=== PATIENT | male | born 1965 | race African-American/Black ===

== ENCOUNTER 2017-11-22 09:09 | Emergency (ER) | payer BC ==
[2017-11-22] MEDS: predniSONE 20 MG TABLET PO (10:03)
[2017-11-22] MEDS: NAPROXEN 500 MG TABLET PO (10:03)
[2017-11-22] MEDS: cloNIDine HCL 0.1 MG TABLET PO (10:13)
== END 2017-11-22 11:40 | disposition home or self-care (01) ==
LOC: ER 09:09
DX: M17.0 Bilateral primary osteoarthritis of knee (principal); M19.071 Primary osteoarthritis, right ankle and foot; I10 Essential (primary) hypertension; F12.10 Cannabis abuse, uncomplicated
CPT/HCPCS: 73564; 73610; 99284; J7512

== ENCOUNTER 2019-06-12 08:44 | Inpatient (IN) | payer BC ==
[~2019-06-12] VITALS: Ht 182.9 cm; Wt 86.4 kg
[~2019-06-12 08:44] MED LIST: AMLO5TAB10 PO; METH4TAB2 PO; TRAM50TA PO
[2019-06-12 09:47] LABS: CREATININE 0.9 mg/dL (0.7-1.3); GFR 107.2; POTASSIUM 4.3 mmol/L (3.5-5.1)
[2019-06-12 09:53] LABS: ALBUMIN 3.9 g/dL (3.4-5.0); ALBUMIN/GLOBULIN RATIO 0.9 (1.0-1.7); TOTAL BILIRUBIN 0.4 mg/dL (0.2-1.0); TOTAL PROTEIN 8.3 g/dL (6.4-8.2)
[2019-06-12] MEDS ORDERED: IV NORMAL SALINE 1000ML BAG 1,000 ML IV SCH (09:58)
--- NOTE | 2019-06-12 10:04 | PHYS DOC ---
Past Medical History Past Medical History: No Pertinent History, Hypertension Past Surgical History: No Surgical History Alcohol Use: Heavy Drug Use: Marijuana Adult General Chief Complaint Chief Complaint: TOE PROBLEM [facility] HPI Patient is a 54 year old male who presents with complaining of injury to left great toe. Patient states he dropped a 50 pound box on his left great toe 5 days ago and for the last 2 days had more pain. Patient states is up-to-date with his tetanus immunization and rated his pain as a moderate pain. He denies any medical problem. Review of Systems Review of Systems Constitutional: Denies fever or chills [] Eyes: Denies change in visual acuity, redness, or eye pain [] HENT: Denies nasal congestion or sore throat [] Respiratory: Denies cough or shortness of breath [] Cardiovascular: No additional information not addressed in HPI [] GI: Denies abdominal pain, nausea, vomiting, bloody stools or diarrhea [] : Denies dysuria or hematuria [] Musculoskeletal: Denies back pain, reports joint pain [] Integument: Denies rash or skin lesions [] Neurologic: Denies headache, focal weakness or sensory changes [] Endocrine: Denies polyuria or polydipsia [] All other systems were reviewed and found to be within normal limits, except as documented in this note. Allergies Allergies Allergies Coded Allergies Type Severity Reaction Last Updated Verified No Known Drug Allergies 11/22/17 No Physical Exam Physical Exam Constitutional: Well developed, well nourished, no distress, non-toxic appearance. [] HENT: Normocephalic, atraumatic. Eyes: PERRLA, EOMI, conjunctiva normal, no discharge. [] Neck: Normal range of motion, no tenderness, supple, no stridor. [] Cardiovascular:Heart rate regular rhythm, no murmur [] Lungs & Thorax: Bilateral breath sounds clear to auscultation [] Back: No tenderness, no CVA tenderness. [] Extremities: Left great toe with edema and erythema and tenderness and few area of open wound and contusion. Neurologic: Alert and oriented X 3, no focal deficits noted. [] Psychologic: Affect normal, judgement normal, mood normal. [] Current Patient Data Vital Signs Vital Signs Date Time Temp Pulse Resp B/P (MAP) Pulse Ox O2 Delivery O2 Flow Rate FiO2 06/12/19 09:40 78 16 216/110 (145) 99 06/12/19 09:22 Room Air 06/12/19 09:00 98.4 98.4 Lab Values Laboratory Tests Test 06/12/19 09:24 White Blood Count 5.5 x10^3/uL (4.0-11.0) Red Blood Count 4.76 x10^6/uL (4.30-5.70) Hemoglobin 14.3 g/dL (13.0-17.5) Hematocrit 41.3 % (39.0-53.0) Mean Corpuscular Volume 87 fL (79-100) Mean Corpuscular Hemoglobin 30 pg (25-35) Mean Corpuscular Hemoglobin Concent 35 g/dL (31-37) Red Cell Distribution Width 13.3 % (11.5-14.5) Platelet Count 262 x10^3/uL (140-400) Neutrophils (%) (Auto) 66 % (31-73) Lymphocytes (%) (Auto) 22 % (24-48) L Monocytes (%) (Auto) 10 % (0-9) H Eosinophils (%) (Auto) 2 % (0-3) Basophils (%) (Auto) 1 % (0-3) Neutrophils # (Auto) 3.7 x10^3/uL (1.8-7.7) Lymphocytes # (Auto) 1.2 x10^3/uL (1.0-4.8) Monocytes # (Auto) 0.5 x10^3/uL (0.0-1.1) Eosinophils # (Auto) 0.1 x10^3/uL (0.0-0.7) Basophils # (Auto) 0.0 x10^3/uL (0.0-0.2) Prothrombin Time 11.8 SEC (11.7-14.0) Prothrombin Time INR 0.9 (0.8-1.1) Sodium Level 137 mmol/L (136-145) Potassium Level 4.3 mmol/L (3.5-5.1) Chloride Level 100 mmol/L (98-107) Carbon Dioxide Level 26 mmol/L (21-32) Anion Gap 11 (6-14) Blood Urea Nitrogen 12 mg/dL (8-26) Creatinine 0.9 mg/dL (0.7-1.3) Estimated GFR (Cockcroft-Gault) 107.2 BUN/Creatinine Ratio 13 (6-20) Glucose Level 124 mg/dL (70-99) H Lactic Acid Level 1.7 mmol/L (0.4-2.0) Calcium Level 9.0 mg/dL (8.5-10.1) Total Bilirubin 0.4 mg/dL (0.2-1.0) Aspartate Amino Transferase (AST) 28 U/L (15-37) Alanine Aminotransferase (ALT) 30 U/L (16-63) Alkaline Phosphatase 62 U/L (46-116) Creatine Kinase 173 U/L (39-308) YB-Hmw-L-Type Natriuretic Peptide 31 pg/mL (0-124) Total Protein 8.3 g/dL (6.4-8.2) H Albumin 3.9 g/dL (3.4-5.0) Albumin/Globulin Ratio 0.9 (1.0-1.7) L Laboratory Tests 06/12/19 09:24 Laboratory Tests 06/12/19 09:24 EKG EKG EKG interpreted by me. EKG at 0 915 showed normal sinus rhythm at rate of 80, left atrial abnormality, poor R-wave progress in anteroseptal leads, nonspecific T-wave abnormality in lateral leads, no acute testicular abnormalities. Radiology/Procedures Radiology/Procedures [][facility] [address] [place] [address] IMAGING REPORT Signed PATIENT: STONE MIN ACCOUNT: [id number] : 1965 LOCATION: ER AGE: 54 SEX: M EXAM STATUS: REG ER ORD. PHYSICIAN: PUJA STARR MD REASON: injury,pt dropped box on foot Mon. swelling,redness PROCEDURE: FOOT LEFT 3V FOOT LEFT 3V History: Trauma. Pain. Swelling. Redness. Technique: 3 views left foot. Comparison: None. Findings: Comminuted mildly displaced left distal phalanx base intra-articular fracture. Additional intra-articular fracture of the left proximal phalanx involving the distal aspect. There is adjacent soft tissue swelling. There is hypertrophic changes involving the left first interphalangeal joint. Otherwise, normal alignment. Prominent dorsal calcaneal enthesophyte. Dorsal foot soft tissue swelling. Impression: 1. 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 2. First digit soft tissue swelling. Electronically signed by: Fran Alonzo DO (06/12/2019 10:00 AM) [facility] DICTATED and SIGNED BY: FRAN ALONZO DO DATE: 06/12/19 1000 [facility] [address] [place] [address] IMAGING REPORT Signed PATIENT: STONE MIN ACCOUNT: [id number] : 1965 LOCATION: ER AGE: 54 SEX: M EXAM STATUS: REG ER ORD. PHYSICIAN: PUJA STARR MD REASON: hypertensive urgency PROCEDURE: PORTABLE CHEST 1V Examination: PORTABLE CHEST 1V History: Hypertensive urgency Comparison/Correlation: None Findings: Portable upright frontal view the chest was obtained. Heart size and pulmonary vasculature are normal. No pneumothorax. No infiltrate. Left costophrenic angle is not fully included on this exam. No significant pleural effusion. Bony structures are unremarkable. Impression: No active disease. Electronically signed by: Rick Guevara MD (06/12/2019 10:45 AM) [facility] DICTATED and SIGNED BY: RICK GUEVARA MD DATE: 06/12/19 1045 Course & Med Decision Making Course & Med Decision Making Pertinent Labs and Imaging studies reviewed. (See chart for details) Evaluation of patient in ER showed 54-year-old male patient with injury to left great toe with open and edema and erythema and sign of cellulitis. X-ray showed comminuted fracture get a stool. Patient had blood pressure of 224/114 without history of hypertension. Patient treated with hydralazine IV with mild decrease of blood pressure.Patient requiring admission for further evaluation and treatment. Discussed with Dr. Rouse who is in agreement with admission. Discussed findings and plan with patient and family, who acknowledge understanding and agreement. Dragon Disclaimer Dragon Disclaimer This electronic medical record was generated, in whole or in part, using a voice recognition dictation system. Departure Departure Impression: Primary Impression: Open fracture of left great toe Additional Impressions: Hypertensive emergency Cellulitis of great toe, left Disposition: 09 ADMITTED INPATIENT (at 0 958) Admitting Physician: PHILLIP (Dr. Rouse accepted admission at 0 957) Condition: IMPROVED Referrals: UNKNOWN PCP NAME (PCP) Problem Qualifiers Primary Impression: Open fracture of left great toe Encounter type: initial encounter Phalanx: distal Fracture alignment: displaced Qualified Codes: S92.422B - Displaced fracture of distal phalanx of left great toe, initial encounter for open fracture PUJA STARR MD Jun 12, 2019 10:04
[2019-06-12] MEDS ORDERED: hydrALAZINE 20 MG/ML VIAL. IVP ONE (10:15)
[2019-06-12] MEDS ORDERED: MORPHINE SULFATE 4 MG/ML VIAL. IV ONE (10:15)
[2019-06-12] MEDS ORDERED: ONDANSETRON PF 4 MG/2 ML VIAL. IV ONE (10:15)
[2019-06-12 10:16] LABS: BASO % 1 % (0-3); EOS # 0.1 x10^3/uL (0.0-0.7); EOS % 2 % (0-3); HEMATOCRIT 41.3 % (39.0-53.0); HEMOGLOBIN 14.3 g/dL (13.0-17.5); LYMPH # 1.2 x10^3/uL (1.0-4.8); LYMPH % 22 % (24-48); MEAN CORPUSCULAR HEMOGLOBIN 30 pg (25-35); MEAN CORPUSCULAR HGB CONC 35 g/dL (31-37); MEAN CORPUSCULAR VOLUME 87 fL (79-100); MONO # 0.5 x10^3/uL (0.0-1.1); MONO % 10 % (0-9); NEUT # 3.7 x10^3/uL (1.8-7.7); NEUT % 66 % (31-73); PLATELET COUNT 262 x10^3/uL (140-400); RED BLOOD COUNT 4.76 x10^6/uL (4.30-5.70); RED CELL DISTRIBUTION WIDTH 13.3 % (11.5-14.5); WHITE BLOOD COUNT 5.5 x10^3/uL (4.0-11.0)
[2019-06-12 10:22] LABS: PROTHROMBIN TIME PATIENT 11.8 SEC (11.7-14.0)
--- NOTE | 2019-06-12 10:23 | EKG ---
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
--- NOTE | 2019-06-12 10:37 | PDOC1 ---
History and Physical Date of Admission Date of Admission DATE: 06/12/19 TIME: 10:33 Identification/Chief Complaint Chief Complaint PRESENTED TO ER WITH PAINFUL TOE/ FOOT AFTER DROPPING HEAVY BOX ON LEFT FOOT/ GREAT TOE AT WORK SATURDAY, WORKS AT [employer], Very hypertensive in ER ON arrival Past Medical History Past Medical History Past Medical History Past Medical History Past Medical History: No Pertinent History, Hypertension Past Surgical History: No Surgical History Alcohol Use: Heavy Drug Use: Marijuana works at [employer] fhx htn Cardiovascular: HTN Pulmonary: No pertinent hx GI: No pertinent hx Heme/Onc: No pertinent hx Renal/: No pertinent hx Endocrine: No pertinent hx Family History Family History: Hypertension Social History Smoke: <1 pack per day ALCOHOL: heavy Drugs: Marijuana Current Problem List Problem List Problems Medical Problems: (1) Cellulitis of great toe, left Status: Acute (2) Hypertensive emergency Status: Acute (3) Open fracture of left great toe Status: Acute Current Medications Current Medications Current Medications Sodium Chloride 1,000 ml @ 1,000 mls/hr Q1H IV Last administered on 06/12/19at 10:13; Start 06/12/19 at 09:58; Stop 06/12/19 at 10:57 Cefazolin Sodium/ Dextrose 50 ml @ 100 mls/hr 1X ONCE IV Last administered on 06/12/19at 10:25; Start 06/12/19 at 10:30; Stop 06/12/19 at 10:59 Hydralazine HCl (Apresoline Inj) 10 mg 1X ONCE IVP Last administered on 06/12/19at 10:16; Start 06/12/19 at 10:15; Stop 06/12/19 at 10:16; Status DC Morphine Sulfate (Morphine Sulfate) 4 mg 1X ONCE IV Last administered on 06/12/19at 10:18; Start 06/12/19 at 10:15; Stop 06/12/19 at 10:16; Status DC Ondansetron HCl (Zofran) 4 mg 1X ONCE IV Last administered on 06/12/19at 10:14; Start 06/12/19 at 10:15; Stop 06/12/19 at 10:16; Status DC Active Scripts Active Tramadol Hcl 50 Mg Tablet 50 Mg PO Q6HRS PRN Amlodipine Besylate 5 Mg Tablet 5 Mg PO DAILY Medrol (Methylprednisolone) 4 Mg Tab.ds.pk 1 Pkg PO UD Allergies Allergies: Coded Allergies: No Known Drug Allergies (Unverified , 11/22/17) ROS Review of System Review of Systems Review of Systems Constitutional: Denies fever or chills [] Eyes: Denies change in visual acuity, redness, or eye pain [] HENT: Denies nasal congestion or sore throat [] Respiratory: Denies cough or shortness of breath [] Cardiovascular: No additional information not addressed in HPI [] GI: Denies abdominal pain, nausea, vomiting, bloody stools or diarrhea [] : Denies dysuria or hematuria [] Musculoskeletal: left great toe joint pain [] Integument: toe laceration left great toe [] Neurologic: Denies headache, focal weakness or sensory changes [] Endocrine: Denies polyuria or polydipsia [] 14 pt systems were reviewed and found to be within normal limits, except as documented Hematological and Lymphatic: No: Bleeding Problems, Blood Clots, Blood T ransfusions, Brusing, Night Sweats, Pallor, Swollen Lymph Nodes, Other Gastrointestinal: No Nausea, No Vomiting, No Abdominal Pain, No Diarrhea, No Constipation, No Melena, No Hematochezia, No Other Musculoskeletal: Yes Gait Disturbance, Yes Joint Stiffness Neurological: No Behavorial Changes, No Bowel/Bladder ControlChng, No Confusion, No Dizziness, No Gait Disturbance, No Headaches, No Impaired Coord/balance, No Memory Loss, No Numbness/Tingling, No Seizures, No Speech Problems, No Tremors, No Visual Changes, No Weakness, No Other Physical Exam Physical Exam Physical Exam Physical Exam Constitutional: Well developed, well nourished, no acute distress, non-toxic appearance. [] HENT: Normocephalic, atraumatic, bilateral external ears normal, oropharynx moist, no oral exudates, nose normal. [] Eyes: PERRLA, EOMI, conjunctiva normal, no discharge. [] Neck: Normal range of motion, no tenderness, supple, no stridor. [] Cardiovascular:Heart rate regular rhythm, no murmur [] Lungs & Thorax: Bilateral breath sounds clear to auscultation [] Abdomen: Bowel sounds normal, soft, no tenderness, no masses, no pulsatile masses. [] Skin: Warm, dry, no erythema, no rash. [] Back: No tenderness, no CVA tenderness. [] Extremities: left great toe cellulitis, open wound . [] Neurologic: Alert and oriented X 3, normal motor function, normal sensory function, no focal deficits noted. [] Psychologic: Affect normal, judgment normal, mood normal. [] General: Alert, Oriented X3, Cooperative, No acute distress HEENT: Atraumatic, PERRLA, EOMI, Mucous membr. moist/pink Lungs: Clear to auscultation, Normal air movement Heart: RRR, no thrills Abdomen: Normal bowel sounds, Soft Rectal Exam: not examined PELVIC: Examination not indicated Extremities: No cyanosis Neuro: Normal speech, Cranial nerves 3-12 NL Psych/Mental Status: Mental status NL, Mood NL Vitals Vitals Vital Signs Date Time Temp Pulse Resp B/P (MAP) Pulse Ox O2 Delivery O2 Flow Rate FiO2 06/12/19 10:18 16 99 Room Air 06/12/19 10:16 73 198/136 06/12/19 09:00 98.4 98.4 Labs Labs Laboratory Tests Test 06/12/19 09:24 White Blood Count 5.5 x10^3/uL (4.0-11.0) Red Blood Count 4.76 x10^6/uL (4.30-5.70) Hemoglobin 14.3 g/dL (13.0-17.5) Hematocrit 41.3 % (39.0-53.0) Mean Corpuscular Volume 87 fL (79-100) Mean Corpuscular Hemoglobin 30 pg (25-35) Mean Corpuscular Hemoglobin Concent 35 g/dL (31-37) Red Cell Distribution Width 13.3 % (11.5-14.5) Platelet Count 262 x10^3/uL (140-400) Neutrophils (%) (Auto) 66 % (31-73) Lymphocytes (%) (Auto) 22 % (24-48) Monocytes (%) (Auto) 10 % (0-9) Eosinophils (%) (Auto) 2 % (0-3) Basophils (%) (Auto) 1 % (0-3) Neutrophils # (Auto) 3.7 x10^3/uL (1.8-7.7) Lymphocytes # (Auto) 1.2 x10^3/uL (1.0-4.8) Monocytes # (Auto) 0.5 x10^3/uL (0.0-1.1) Eosinophils # (Auto) 0.1 x10^3/uL (0.0-0.7) Basophils # (Auto) 0.0 x10^3/uL (0.0-0.2) Prothrombin Time 11.8 SEC (11.7-14.0) Prothromb Time International Ratio 0.9 (0.8-1.1) Sodium Level 137 mmol/L (136-145) Potassium Level 4.3 mmol/L (3.5-5.1) Chloride Level 100 mmol/L (98-107) Carbon Dioxide Level 26 mmol/L (21-32) Anion Gap 11 (6-14) Blood Urea Nitrogen 12 mg/dL (8-26) Creatinine 0.9 mg/dL (0.7-1.3) Estimated GFR (Cockcroft-Gault) 107.2 BUN/Creatinine Ratio 13 (6-20) Glucose Level 124 mg/dL (70-99) Lactic Acid Level 1.7 mmol/L (0.4-2.0) Calcium Level 9.0 mg/dL (8.5-10.1) Total Bilirubin 0.4 mg/dL (0.2-1.0) Aspartate Amino Transf (AST/SGOT) 28 U/L (15-37) Alanine Aminotransferase (ALT/SGPT) 30 U/L (16-63) Alkaline Phosphatase 62 U/L (46-116) Creatine Kinase 173 U/L (39-308) Total Protein 8.3 g/dL (6.4-8.2) Albumin 3.9 g/dL (3.4-5.0) Albumin/Globulin Ratio 0.9 (1.0-1.7) Laboratory Tests Test 06/12/19 09:24 White Blood Count 5.5 x10^3/uL (4.0-11.0) Red Blood Count 4.76 x10^6/uL (4.30-5.70) Hemoglobin 14.3 g/dL (13.0-17.5) Hematocrit 41.3 % (39.0-53.0) Mean Corpuscular Volume 87 fL (79-100) Mean Corpuscular Hemoglobin 30 pg (25-35) Mean Corpuscular Hemoglobin Concent 35 g/dL (31-37) Red Cell Distribution Width 13.3 % (11.5-14.5) Platelet Count 262 x10^3/uL (140-400) Neutrophils (%) (Auto) 66 % (31-73) Lymphocytes (%) (Auto) 22 % (24-48) Monocytes (%) (Auto) 10 % (0-9) Eosinophils (%) (Auto) 2 % (0-3) Basophils (%) (Auto) 1 % (0-3) Neutrophils # (Auto) 3.7 x10^3/uL (1.8-7.7) Lymphocytes # (Auto) 1.2 x10^3/uL (1.0-4.8) Monocytes # (Auto) 0.5 x10^3/uL (0.0-1.1) Eosinophils # (Auto) 0.1 x10^3/uL (0.0-0.7) Basophils # (Auto) 0.0 x10^3/uL (0.0-0.2) Prothrombin Time 11.8 SEC (11.7-14.0) Prothromb Time International Ratio 0.9 (0.8-1.1) Sodium Level 137 mmol/L (136-145) Potassium Level 4.3 mmol/L (3.5-5.1) Chloride Level 100 mmol/L (98-107) Carbon Dioxide Level 26 mmol/L (21-32) Anion Gap 11 (6-14) Blood Urea Nitrogen 12 mg/dL (8-26) Creatinine 0.9 mg/dL (0.7-1.3) Estimated GFR (Cockcroft-Gault) 107.2 BUN/Creatinine Ratio 13 (6-20) Glucose Level 124 mg/dL (70-99) Lactic Acid Level 1.7 mmol/L (0.4-2.0) Calcium Level 9.0 mg/dL (8.5-10.1) Total Bilirubin 0.4 mg/dL (0.2-1.0) Aspartate Amino Transf (AST/SGOT) 28 U/L (15-37) Alanine Aminotransferase (ALT/SGPT) 30 U/L (16-63) Alkaline Phosphatase 62 U/L (46-116) Creatine Kinase 173 U/L (39-308) Total Protein 8.3 g/dL (6.4-8.2) Albumin 3.9 g/dL (3.4-5.0) Albumin/Globulin Ratio 0.9 (1.0-1.7) Images Images SEX: M EXAM STATUS: REG ER ORD. PHYSICIAN: PUJA STARR MD REASON: injury,pt dropped box on foot Mon. swelling,redness PROCEDURE: FOOT LEFT 3V FOOT LEFT 3V History: Trauma. Pain. Swelling. Redness. Technique: 3 views left foot. Comparison: None. Findings: Comminuted mildly displaced left distal phalanx base intra-articular fracture. Additional intra-articular fracture of the left proximal phalanx involving the distal aspect. There is adjacent soft tissue swelling. There is hypertrophic changes involving the left first interphalangeal joint. Otherwise, normal alignment. Prominent dorsal calcaneal enthesophyte. Dorsal foot soft tissue swelling. Impression: 1. 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 2. First digit soft tissue swelling. Electronically signed by: Janice Fontana DO (06/12/2019 10:00 AM) [facility] DICTATED and SIGNED BY: JANICE FONTANA DO DATE: 06/12/19 1000 VTE Prophylaxis Ordered VTE Prophylaxis Devices: Contraindicated VTE Pharmacological Prophylaxi: Yes Assessment/Plan Assessment/Plan Impression: 1. 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 2. First digit soft tissue swelling. 3. CRUSH injury to left foot. POA 4 DAYS OLD 4. HX ETOH AND THC ABUSE 5. hypertensive urgency plan admit ortho consult IV ANTIBIOTICS, ROCEPHIN, VANC, PENDING ID CONSULT ID CONSULT IV PAIN CONTROL dvt prophylaxis, heparin TD if not up to date iv prn bp support norvasc 10 mg po daily ALCOHOL WITHDRAWAL precautions cardiology consult UDS 55 min pt exam, chart review, > 50% of time spent with exam, chart review, pt care coordination STONE CASTELLANOS MD Jun 12, 2019 10:37
--- NOTE | 2019-06-12 10:48 | RAD ---
Examination: PORTABLE CHEST 1V History: Hypertensive urgency Comparison/Correlation: None Findings: Portable upright frontal view the chest was obtained. Heart size and pulmonary vasculature are normal. No pneumothorax. No infiltrate. Left costophrenic angle is not fully included on this exam. No significant pleural effusion. Bony structures are unremarkable. Impression: No active disease. Electronically signed by: Rick Meehan MD (06/12/2019 10:45 AM) [facility]
[2019-06-12] MEDS ORDERED: VANCOMYCIN 2 GM in IV NORMAL SALINE 500ML BAG 500 ML IV ONE (11:00)
[2019-06-12] MEDS ORDERED: HALOPERIDOL LACTATE 5 MG/ML VIAL. IVP PRN (11:00)
[2019-06-12] MEDS ORDERED: cloNIDine HCL 0.1 MG TABLET PO PRN (11:00)
[2019-06-12] MEDS ORDERED: LORazepam 1 MG TABLET PO PRN ×2 (11:00)
[2019-06-12] MEDS: IV NORMAL SALINE 1000ML BAG 1,000 ML IV SCH (11:03)
[2019-06-12] MEDS ORDERED: DOCUSATE SODIUM 100 MG CAPSULE. PO PRN (11:15)
[2019-06-12] MEDS ORDERED: LORazepam 0.5 MG TABLET PO PRN (11:15)
[2019-06-12] MEDS ORDERED: guaiFENesin ORAL 200 MG/10 ML LIQUID. PO PRN (11:15)
[2019-06-12] MEDS ORDERED: ONDANSETRON PF 4 MG/2 ML VIAL. IV PRN (11:15)
[2019-06-12] MEDS ORDERED: ZOLPIDEM 5 MG TABLET. PO PRN (11:15)
[2019-06-12] MEDS ORDERED: ACETAMINOPHEN 325 MG TABLET. PO PRN (11:15)
[2019-06-12] MEDS ORDERED: MAG HYDROX/ALUMINUM HYD/SIMETH 30 ML ORAL.SUSP PO PRN (11:15)
[2019-06-12] MEDS ORDERED: ALBUTEROL SULFATE 2.5 MG/3 ML NEBU. NEB PRN (11:15)
[2019-06-12] MEDS ORDERED: 0.9 % SODIUM CHLORIDE 10 ML DISP.SYRIN. IV PRN (11:15)
[2019-06-12] MEDS: hydrALAZINE 20 MG/ML VIAL. IVP PRN (11:19)
[2019-06-12 11:20] VITALS: BP 210/95
[2019-06-12] MEDS: cefTRIAXone IV Push 1 GM VIAL. IVP SCH ×2 (11:42→20:29)
[2019-06-12 11:43] LABS: BILIRUBIN,URINE NEGATIVE (NEG); CLARITY,URINE CLEAR; COLOR,URINE YELLOW; NITRITE,URINE NEGATIVE (NEG); PH,URINE 5.5; PROTEIN,URINE NEGATIVE (NEG-TRACE); UROBILINOGEN,URINE 0.2 mg/dL (0.2 mg/dL)
[2019-06-12 11:50] LABS: BARBITURATES NEG (NEG); BENZODIAZEPINES NEG (NEG); CANNABINOIDS POS (NEG); COCAINE NEG (NEG); METHADONE NEG (NEG); OPIATES POS (NEG); PHENCYCLIDINE NEG (NEG)
[2019-06-12 11:51] LABS: AMPHETAMINE/METHAMPHETAMINE NEG (NEG)
[2019-06-12 11:58] LABS: BACTERIA,URINE 0 /HPF (0-FEW); RBC,URINE 0 /HPF (0-2); SQUAMOUS EPITHELIAL CELL,UR FEW /LPF; WBC,URINE 0 /HPF (0-4)
[2019-06-12] MEDS: amLODIPine BESYLATE 10 MG TABLET PO SCH (12:00)
[2019-06-12] MEDS ORDERED: MULTIVIT INFUSN,ADULT 4,VIT K 10 ML, THIAMINE INJ 100 MG, FOLIC ACID INJ 1 MG in IV NOR... IV ONE (12:00)
[2019-06-12] MEDS: cloNIDine HCL 0.1 MG TABLET PO PRN ×2 (12:25→18:48)
--- NOTE | 2019-06-12 12:39 | PDOC2 ---
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 Apparently he dropped a heavy box to his left big toe and has gotten swollen and even more swollen since he had this incident in the last week. 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 He uses marijuana but no stimulants. He was told when he was young that he had HTN but has never been medicated. He has been taking more NSAID than usual since he hurt his toe and upon further imaging it was noted to be broken. He drinks 1-2 beers a night. Denies any CV disease. No abd pain, presyncopal symptoms. No significant family hx of CV diseases. Upon admission his BP was uncontrollably high bu no symptoms. PAST MEDICAL HISTORY Past Medical History HTN when he was much younger otherwise no pertinent history PAST SURGICAL HISTORY Past Surgical History: No pertinent history FAMILY HISTORY Family History: Diabetes (mother) CURRENT MEDICATIONS CURRENT MEDICATIONS Current Medications Medications (Trade) Dose Ordered Sig/Aris Route PRN Reason Start Time Stop Time Status Last Admin Dose Admin Sodium Chloride 1,000 ml @ 1,000 mls/hr Q1H IV 06/12/19 09:58 06/12/19 11:08 DC 06/12/19 10:13 Cefazolin Sodium/ Dextrose 50 ml @ 100 mls/hr 1X ONCE IV 06/12/19 10:30 06/12/19 11:08 DC 06/12/19 10:25 Hydralazine HCl (Apresoline Inj) 10 mg 1X ONCE IVP 06/12/19 10:15 06/12/19 10:16 DC 06/12/19 10:16 Morphine Sulfate (Morphine Sulfate) 4 mg 1X ONCE IV 06/12/19 10:15 06/12/19 10:16 DC 06/12/19 10:18 Ondansetron HCl (Zofran) 4 mg 1X ONCE IV 06/12/19 10:15 06/12/19 10:16 DC 06/12/19 10:14 Ceftriaxone Sodium (Rocephin) 1 gm BID IVP 06/12/19 12:00 06/12/19 11:42 Vancomycin HCl 2 gm/Sodium Chloride 500 ml @ 250 mls/hr 1X ONCE IV 06/12/19 11:00 06/12/19 12:59 06/12/19 11:08 Hydralazine HCl (Apresoline Inj) 10 mg PRN Q4HRS PRN IVP ELEVATED BP, SEE COMMENTS 06/12/19 11:00 06/12/19 11:19 Amlodipine Besylate (Norvasc) 10 mg DAILY08 PO 06/12/19 12:00 06/12/19 12:00 Multivitamins 10 ml/Thiamine HCl 100 mg/Folic Acid 1 mg/Sodium Chloride 1,011.2 ml @ 100 mls/ hr 1X ONCE IV 06/12/19 12:00 06/12/19 22:06 06/12/19 11:43 ALLERGIES ALLERGIES: Coded Allergies: No Known Drug Allergies (Unverified , 11/22/17) ROS Review of System 14 point ROS evaluated with pertinent positives noted per HPI PHYSICAL EXAM General: Alert, Oriented X3, Cooperative, No acute distress HEENT: Atraumatic, Mucous membr. moist/pink Lungs: Clear to auscultation, Normal air movement Heart: Regular rate (SR), Normal S1, Normal S2, Other (S4; 4/6 systolic murmur to SHEILA border) Abdomen: Soft, No tenderness Extremities: No cyanosis, Other (left big toe edema with erythema) Skin: Other (Left big toe cellulitis) Neuro: Normal speech, Sensation intact Psych/Mental Status: Mental status NL, Mood NL MUSCULOSKELETAL: Osteoarthritic changes both hands VITALS/I&O VITALS/I&O: Vital Signs Date Time Temp Pulse Resp B/P (MAP) Pulse Ox O2 Delivery O2 Flow Rate FiO2 06/12/19 12:00 90 210/95 06/12/19 11:35 16 99 Room Air 06/12/19 11:20 98.5 98.5 LABS Lab: Laboratory Tests Test 06/12/19 09:24 06/12/19 11:15 White Blood Count 5.5 x10^3/uL (4.0-11.0) Red Blood Count 4.76 x10^6/uL (4.30-5.70) Hemoglobin 14.3 g/dL (13.0-17.5) Hematocrit 41.3 % (39.0-53.0) Mean Corpuscular Volume 87 fL (79-100) Mean Corpuscular Hemoglobin 30 pg (25-35) Mean Corpuscular Hemoglobin Concent 35 g/dL (31-37) Red Cell Distribution Width 13.3 % (11.5-14.5) Platelet Count 262 x10^3/uL (140-400) Neutrophils (%) (Auto) 66 % (31-73) Lymphocytes (%) (Auto) 22 % (24-48) L Monocytes (%) (Auto) 10 % (0-9) H Eosinophils (%) (Auto) 2 % (0-3) Basophils (%) (Auto) 1 % (0-3) Neutrophils # (Auto) 3.7 x10^3/uL (1.8-7.7) Lymphocytes # (Auto) 1.2 x10^3/uL (1.0-4.8) Monocytes # (Auto) 0.5 x10^3/uL (0.0-1.1) Eosinophils # (Auto) 0.1 x10^3/uL (0.0-0.7) Basophils # (Auto) 0.0 x10^3/uL (0.0-0.2) Prothrombin Time 11.8 SEC (11.7-14.0) Prothrombin Time INR 0.9 (0.8-1.1) Sodium Level 137 mmol/L (136-145) Potassium Level 4.3 mmol/L (3.5-5.1) Chloride Level 100 mmol/L (98-107) Carbon Dioxide Level 26 mmol/L (21-32) Anion Gap 11 (6-14) Blood Urea Nitrogen 12 mg/dL (8-26) Creatinine 0.9 mg/dL (0.7-1.3) Estimated GFR (Cockcroft-Gault) 107.2 BUN/Creatinine Ratio 13 (6-20) Glucose Level 124 mg/dL (70-99) H Lactic Acid Level 1.7 mmol/L (0.4-2.0) Calcium Level 9.0 mg/dL (8.5-10.1) Total Bilirubin 0.4 mg/dL (0.2-1.0) Aspartate Amino Transferase (AST) 28 U/L (15-37) Alanine Aminotransferase (ALT) 30 U/L (16-63) Alkaline Phosphatase 62 U/L (46-116) Creatine Kinase 173 U/L (39-308) RT-Wbs-R-Type Natriuretic Peptide 31 pg/mL (0-124) Total Protein 8.3 g/dL (6.4-8.2) H Albumin 3.9 g/dL (3.4-5.0) Albumin/Globulin Ratio 0.9 (1.0-1.7) L Urine Collection Type Unknown Urine Color Yellow Urine Clarity Clear Urine pH 5.5 Urine Specific [place] 1.010 Urine Protein Negative mg/dL (NEG-TRACE) Urine Glucose (UA) Negative mg/dL (NEG) Urine Ketones (Stick) Negative mg/dL (NEG) Urine Blood Negative (NEG) Urine Nitrite Negative (NEG) Urine Bilirubin Negative (NEG) Urine Urobilinogen Dipstick 0.2 mg/dL (0.2 mg/dL) Urine Leukocyte Esterase Negative (NEG) Urine RBC 0 /HPF (0-2) Urine WBC 0 /HPF (0-4) Urine Squamous Epithelial Cells Few /LPF Urine Bacteria 0 /HPF (0-FEW) Urine Opiates Screen Pos (NEG) Urine Methadone Screen Neg (NEG) Urine Barbiturates Neg (NEG) Urine Phencyclidine Screen Neg (NEG) Urine Amphetamine/Methamphetamine Neg (NEG) Urine Benzodiazepines Screen Neg (NEG) Urine Cocaine Screen Neg (NEG) Urine Cannabinoids Screen Pos (NEG) Urine Ethyl Alcohol Neg (NEG) Laboratory Tests 06/12/19 09:24 Laboratory Tests 06/12/19 09:24 ASSESSMENT/PLAN ASSESSMENT/PLAN 1. Left great toe cellulitis/comminuted fracture from recent trauma 2. Accelerated HTN: possibly hypertensive heart disease. EKG SR with LVH 3. Marijuana use Recommendations 1. TTE and renal duplex. TSH, lipids 2. Denies heavy ETOH use,discussed marijuana cessation 3. Clonidine given. Agree with norvasc. Will start on on coreg. Titrate BP meds. 4. Ortho consult pending SE SABA MD 06/12/19 9153: CARDIAC CONSULT ASSESSMENT/PLAN ASSESSMENT/PLAN Pt. seen and examined. Agree with above NEUROPSYCHOLOGY MEDICAL CONSULTANT Note. He has no cardiac symptoms. 6 months ago saw PCP and told that he had normal BP Exam unremarkable. Echo with LVH and normal LV function. There is concern for possible abdominal aortic narrowing. Femoral pulses are intact with good distal pedal pulses. Probable error on U/s imaging. Supportive care with BP mgmt. Thanks NICHELLE LIU APRN Jun 12, 2019 12:39 SE SABA MD Jun 12, 2019 17:23
[2019-06-12] MEDS ORDERED: HYDROmorphone 2 MG/ML VIAL IVP PRN (12:45)
[2019-06-12] MEDS: CARVEDILOL 12.5 MG TABLET. PO SCH ×2 (13:09→17:18)
[2019-06-12] MEDS ORDERED: DIPHTH,PERTUSS(ACELL),TET TOX 0.5 ML DISP.SYRIN. VAX IM ONE (13:30)
--- NOTE | 2019-06-12 13:32 | NUR ---
SS following for discharge planning. SS reviewed pt chart. Pt is from home and is currently on room air. SS will continue to follow for discharge planning.
--- NOTE | 2019-06-12 14:05 | RAD ---
MR#: [id number] Date of Study: 06/12/2019 Ordering Physician: NICHELLE LIU, Referring Physician: NICHELLE LIU, Tech: Nataly Adams RVT,JAN APPROVED REPORT Patient Location: IN-PATIENT Indications Uncontrolled HTN Renal Artery Doppler Right Renal Artery Left Renal Arter y Proximal 181.3/58.9 cm/secProximal 213.5/80.6 cm/sec Mid 146.3/50.9 cm/secMid 168.3/50.9 cm/sec Distal 140.0/43.0 cm/secDistal 134.0/41.0 cm/sec Renal/Aorta Ratio 0.60Renal/Aorta Ratio 0.80 Prox. Resistive Index 0.68Prox. Resistive Index 0.62 Mid Resistive Index 0.65Mid Resistive Index 0.70 Aortic Duplex A/PTransverseLongitudinal Proximal Aorta 2.4cm Mid Aorta 2.4cm Aortic Doppler VelocityWaveform Proximal Aorta 104.1 cm/sec Mid. Aorta 281.8 cm/sec Findings Technically limited study with diminished visualization of the distal aorta due to bowel gas. Spectral waveforms and color Doppler of the aorta are suggestive of a 50% stenosis involving the mid aorta. Nonetheless, no critical renal artery stenosis is identified with grossly normal renal to aort ic ratios bilaterally. Proximal, mid and distal renal arteries are unremarkable. Bilateral kidney grayscale images are grossly unremarkable. Critical Notification Critical Value: No <Conclusion> 1. No evidence of critical renal artery stenosis 2. Cannot rule out atherosclerotic disease involving the mid to distal abdominal aorta. 3. Technically difficult study. Signed by : Jacinto Park, Electronically Approved : 06/12/2019 14:04:23
[2019-06-12] MEDS: VANCOMYCIN PER PHARMACY MC PRN (14:34)
--- NOTE | 2019-06-12 14:35 | NUR ---
Pharmacy Vancomycin Dosing Note S:Consulted to monitor and dose vancomycin started 06/12/19. O:STONE MIN is a 54 year old M with Cellulitis . Height: 6 feet, 0 inches Weight: 84.648110 kg [place] Body Weight: 77.60 Adjusted Body Weight: 80.16 Dosing Weight: Actual Other Antibiotics: ROCEPHIN LABS: Last BUN: Last Creatinine: 0.9 Creatinine Clearance: 109 mL/min Last WBC: 5.5 Last Procalcitonin: Tmax (past 24 hours): Microbiology: I/O: 1050/500 Drug Levels: Last level: on at Last dose given 06/12/19 at 1100 Vancomycin Dosing: Loading Dose: 2000 mg x1 Dosing Weight: Actual Target Trough: 10-20 A: Based on: WEIGHT AND RENAL FUNCTION, VANCOMYCIN 2GM IV BOLUS GIVEN, P: 1. Begin Vancomycin 1250 mg IV q8h 2. Follow up Trough level on 06/13/19 at 1030 3. Pharmacy will continue to monitor, follow and adjust therapy as needed. PEGGY CAMARENA [facility], 06/12/19 [id number]
[2019-06-12 15:24] VITALS: BP 159/87
--- NOTE | 2019-06-12 15:42 | NUR ---
Wound Care: Consult to eval and treat for trauma wound to L great toe. Per pt, he dropped a box on his toe on Saturday and continued to work for several days until the pain became unbearable. L great toe swollen, bruised, and reddened. Large open blister draining clear serosanguineous drainage, weeping limited to the fluid collection present in the blister. Smaller intact blister located adjacent to the larger blister. Nail of toe is loosely attached. No purulent drainage noted, nor odor. Pt denies history of Diabetes. Recommended for Caroline RN to request HG A1C from Dr. Rouse r/t BG of 124 on admission. Blisters painted with betadine, covered with Aquacel AG and ABD pad. Plan to follow up on 06/18/19. Addendum: 06/12/19 at 1551 by GREGORY SUE RN No other open areas noted on head to toe assessment. Pt able to turn independently. Educated to change position frequently to prevent skin breakdown.
--- NOTE | 2019-06-12 16:27 | CARD ---
MR#: [id number] Date of Study: 06/12/2019 Ordering Physician: NICHELLE LIU, Referring Physician: Libby BREWSTER: Milagro Lu APPROVED REPORT EXAM: Two-dimensional and M-mode echocardiogram with Doppler and color Doppler. Other Information Quality : GoodHR: 78bpm INDICATION Hypertension/HCVD 2D DIMENSIONS RVDd2.4 (2.9-3.5cm)Left Atrium(2D)3.2 (1.6-4.0cm) IVSd1.6 (0.7-1.1cm)Aortic Root(2D)2.2 (2.0-3.7cm) LVDd3.5 (3.9-5.9cm)LVOT Diameter2.0 (1.8-2.4cm) PWd1.5 (0.7-1.1cm)LVDs2.5 (2.5-4.0cm) FS (%) 29.1 %SV29.7 ml LVEF(%)56.9 (>50%) Aortic Valve AoV Peak Greg.181.9cm/sAoV VTI33.6cm AO Peak GR.13.2mmHgLVOT Peak Greg.137.5cm/s AO Mean GR.8mmHgAVA (VMAX)2.32cm2 Mitral Valve MV E Qkfawszq84.2cm/sMV E Peak Gr.4mmHg MV DECEL [id number] A Uceqavwc51.4cm/s MV E Mean Gr.2mmHgE/A Ratio0.8 Pulmonary Valve PV Peak Ksewkpks80.0cm/s Pulmonary Vein S1 Lxjrkosp81.5cm/sD2 Mumqsvnz69.0cm/s LEFT VENTRICLE The left ventricle is normal size. There is moderate concentric left ventricular hypertrophy. The lef t ventricular systolic function is normal and the ejection fraction is within normal range. The Eject ion Fraction is >55%. There is normal LV segmental wall motion. Transmitral Doppler flow pattern is G rade I-abnormal relaxation pattern. RIGHT VENTRICLE The right ventricle is normal size. There is normal right ventricular wall thickness. The right ventr icular systolic function is normal. ATRIA The left atrium size is normal. The right atrium size is normal. The interatrial septum is intact wit h no evidence for an atrial septal defect or patent foramen ovale as noted on 2-D or Doppler imaging. AORTIC VALVE The aortic valve is normal in structure and function. Doppler and Color Flow revealed no significant aortic regurgitation. There is no significant aortic valvular stenosis. MITRAL VALVE The mitral valve is thickened but opens well. There is no evidence of mitral valve prolapse. There is no mitral valve stenosis. Doppler and Color-flow revealed trace mitral regurgitation. TRICUSPID VALVE The tricuspid valve is normal in structure and function. Doppler and Color Flow revealed trace tricus pid regurgitation. There is no tricuspid valve stenosis. PULMONIC VALVE Doppler and Color Flow revealed trace pulmonic valvular regurgitation. There is no pulmonic valvular stenosis. GREAT VESSELS The aortic root is normal in size. The IVC is normal in size and collapses >50% with inspiration. PERICARDIAL EFFUSION There is no evidence of significant pericardial effusion. Critical Notification Critical Value: No <Conclusion> There is moderate concentric left ventricular hypertrophy. The left ventricular systolic function is normal and the ejection fraction is within normal range. Th e Ejection Fraction is >55%. There is normal LV segmental wall motion. Signed by : Jacinto Park, Electronically Approved : 06/12/2019 16:26:38
[2019-06-12 17:07] LABS: CHOLESTEROL/HDL RATIO 3.4
[2019-06-12] MEDS: VANCOMYCIN 1.25 GM in IV NORMAL SALINE 250ML 250 ML IV SCH (18:30)
[2019-06-12 19:36] VITALS: BP 171/101
--- NOTE | 2019-06-12 20:23 | CONS ---
DATE OF CONSULTATION: ORTHOPEDIC CONSULTATION REQUESTING PHYSICIAN: Dr. Rouse. REASON FOR CONSULTATION: Left great toe pain and swelling. HISTORY OF PRESENT ILLNESS: The patient is a 54-year-old male that works for [employer] and reports that Saturday of this week about 4 days ago, he had dropped a box on his foot, had immediate onset of pain, but just tried to wait for it to resolve. He indicates that his foot has been painful and swollen over that time, but now is having more swelling, redness and came into the Emergency Department, was noted to be very hypertensive and admitted to the hospital for further evaluation and treatment. PAST MEDICAL HISTORY: Denies past medical history other than hypertension. PAST SURGICAL HISTORY: None. SOCIAL HISTORY: Heavy alcohol use, occasional marijuana. He is a less than 1 pack per day cigarette smoker. FAMILY HISTORY: Hypertension. MEDICATIONS: List is reviewed. ALLERGIES: He has no known drug allergies. REVIEW OF SYSTEMS: Denies any fever or chills. It is significant for the left great toe pain and swelling, difficulty with his gait as a result. PHYSICAL EXAMINATION: GENERAL: Pleasant, cooperative 54-year-old male, alert and oriented, no acute distress. EXTREMITIES: Examination of the noninvolved right great toe actually reveals good motion at the metatarsophalangeal joint, really no significant motion at the interphalangeal joint. Examination of the left great toe reveals significant tenderness with fracture blister formation. Toenail was intact. He has good motion at the metatarsophalangeal joint. There is really only mild cellulitis due to the skin being shiny due to his swelling, really minimal swelling in the rest of the foot. Normal motion and stability of hindfoot, forefoot, and midfoot bilaterally. No tenderness at all over his ankle on palpation and he has full range of motion of bilateral ankles with good stability, normal alignment and stability of bilateral hips and knees and aside from fracture blisters on the left dorsum of the great toe and swelling, intact motor function, distal pulses, sensation, reflexes, skin in both lower extremities throughout. IMAGING: X-rays of the left great toe show a comminuted fracture that involves both the proximal phalanx of the left great toe and the distal phalanx at the joint, distal phalanx is significantly comminuted and overall well aligned. Proximal phalanx is crushed into multiple small pieces in its medial aspect. The joint is otherwise well approximated and shows no gross instability. IMPRESSION: Left great toe crush injury with significant swelling, blistering and comminuted fracture at the interphalangeal joint. TREATMENT PLAN: I went over with him that aside from the fracture blister which is a result of swelling, skin is otherwise really not compromised. He may later lose his toenail; however, with regard to the treatment of the fracture itself, I do not anticipate any improvement from operative treatment. First of all, he is very stiff on his contralateral foot at the interphalangeal joint, there was really no motion at all and the toe is unstable and further the fracture is so comminuted that any surgical treatment would really not improve his condition and in fact would be more of a risk for infection. I told him at this point that some antibiotics might be warranted just due to the fracture blistering and what could develop into more severe cellulitis. I did give him options of a Cam walker boot versus a stiff-soled shoe. He would prefer the option of a stiff insert and a closed-toe shoe that he could actually work with, as opposed to an open postoperative type shoe. I did tell him that we could have [facility] fit him up with a stiff carbon fiber full-length inset fact that could go underneath cushiony part of his shoe. Alternatively, if the [employer] cannot get anything in an adequate enough timeframe for him, that there is a local running store called [employer] that actually has stiff carbon fiber inserts that they will cut and fit to size and usually can do that just on a walk-in basis very quickly for a reasonable amount of money. I let him know that there were two locations that do to this; there is one at [facility] just across [address] [place] on [place] and there is also one in [place]. He said this would be close for him in terms of where he works _[place] and probably prefer this option to get it sooner and allow him to go back to work sooner possibly. All his questions were answered in the interim and in terms of any orthopedic followup, I could see him back in a couple of weeks to reassess fracture alignment or as necessary if he develops any further wound problems, but would anticipate a course of oral antibiotics on his discharge. All his questions were answered. He agreed with the treatment plan and followup can be as above. EDGARD HILARIO MD DR: RADHA/dragan JOB#: [id number] / [id number]
[2019-06-12] MEDS: LACTOBACILLUS RHAMNOSUS GG 1 CAPSULE. PO SCH (20:29)
[2019-06-12] MEDS: HYDROcodone/APAP 5/325MG 1 TAB TABLET PO PRN (22:22)
[2019-06-12 23:14] VITALS: BP 163/86
[2019-06-13] MEDS: IV NORMAL SALINE 1000ML BAG 1,000 ML IV SCH ×2 (00:09→07:03)
[2019-06-13] MEDS: VANCOMYCIN 1.25 GM in IV NORMAL SALINE 250ML 250 ML IV SCH ×2 (02:50→11:37)
[2019-06-13 03:12] VITALS: BP 187/101
[2019-06-13 03:29] VITALS: BP 155/93
[2019-06-13 07:30] VITALS: BP 187/94
[2019-06-13] MEDS: CARVEDILOL 12.5 MG TABLET. PO SCH (08:19)
[2019-06-13] MEDS: LACTOBACILLUS RHAMNOSUS GG 1 CAPSULE. PO SCH (08:19)
[2019-06-13] MEDS: amLODIPine BESYLATE 10 MG TABLET PO SCH (08:19)
[2019-06-13] MEDS: HYDROcodone/APAP 5/325MG 1 TAB TABLET PO PRN (08:23)
--- NOTE | 2019-06-13 08:24 | PDOC ---
CARDIOLOGY PROGRESS NOTE SUBJECTIVE: No acute events overnight. Denies any chest pain, orthopnea or PND. Does have some sweats this morning. L toe pain is stable. OBJECTIVE: Vital Signs/I&O: Vital Signs Date Time Temp Pulse Resp B/P (MAP) Pulse Ox O2 Delivery O2 Flow Rate FiO2 06/13/19 07:30 98.2 74 12 187/94 (125) 98 Room Air 98.2 I & O 06/12/19 06/12/19 06/13/19 15:00 23:00 07:00 Intake Total 1050 ml 820 ml Output Total 500 ml 700 ml 1000 ml Balance 550 ml -700 ml -180 ml Objective: a/o x 3. NAD No edema. Otherwise, no changes to exam CURRENT MEDICATIONS: Current Medications Medications (Trade) Dose Ordered Sig/Aris Route PRN Reason Start Time Stop Time Status Last Admin Dose Admin Sodium Chloride 1,000 ml @ 1,000 mls/hr Q1H IV 06/12/19 09:58 06/12/19 11:08 DC 06/12/19 10:13 Cefazolin Sodium/ Dextrose 50 ml @ 100 mls/hr 1X ONCE IV 06/12/19 10:30 06/12/19 11:08 DC 06/12/19 10:25 Hydralazine HCl (Apresoline Inj) 10 mg 1X ONCE IVP 06/12/19 10:15 06/12/19 10:16 DC 06/12/19 10:16 Morphine Sulfate (Morphine Sulfate) 4 mg 1X ONCE IV 06/12/19 10:15 06/12/19 10:16 DC 06/12/19 10:18 Ondansetron HCl (Zofran) 4 mg 1X ONCE IV 06/12/19 10:15 06/12/19 10:16 DC 06/12/19 10:14 Ceftriaxone Sodium (Rocephin) 1 gm BID IVP 06/12/19 12:00 06/12/19 20:29 Vancomycin HCl (Vanco Per Pharmacy) 1 each PRN DAILY PRN MC SEE COMMENTS 06/12/19 10:45 06/12/19 14:34 Vancomycin HCl 2 gm/Sodium Chloride 500 ml @ 250 mls/hr 1X ONCE IV 06/12/19 11:00 06/12/19 12:59 DC 06/12/19 11:08 Hydralazine HCl (Apresoline Inj) 10 mg PRN Q4HRS PRN IVP ELEVATED BP, SEE COMMENTS 06/12/19 11:00 06/12/19 11:19 Amlodipine Besylate (Norvasc) 10 mg DAILY08 PO 06/12/19 12:00 06/12/19 12:00 Multivitamins 10 ml/Thiamine HCl 100 mg/Folic Acid 1 mg/Sodium Chloride 1,011.2 ml @ 100 mls/ hr 1X ONCE IV 06/12/19 12:00 06/12/19 22:06 DC 06/12/19 11:43 Sodium Chloride 1,000 ml @ 100 mls/hr Q10H IV 06/12/19 11:03 06/13/19 00:09 Clonidine HCl (Catapres) 0.1 mg PRN Q6HRS PRN PO SBP>160 OR DBP>90 06/12/19 11:15 06/12/19 18:48 Carvedilol (Coreg) 12.5 mg BIDWMEALS PO 06/12/19 13:00 06/12/19 17:18 Lactobacillus Rhamnosus (Culturelle) 1 cap BID PO 06/12/19 21:00 06/12/19 20:29 Diphtheria/ Tetanus/Acell Pertussis (Boostrix) 0.5 ml ONCE ONCE VAX IM 06/12/19 13:30 06/12/19 13:31 DC 06/12/19 14:46 Vancomycin HCl 1.25 gm/Sodium Chloride 250 ml @ 167 mls/hr Q8H IV 06/12/19 19:00 06/13/19 02:50 Acetaminophen/ Hydrocodone Bitart (Lortab 5/325) 1 tab PRN Q4HRS PRN PO PAIN 06/12/19 22:00 06/12/19 22:22 DIAGNOSTIC TESTING: labs reviewed Labs: Laboratory Tests 06/12/19 09:24 Laboratory Tests Test 06/12/19 09:24 06/12/19 11:15 White Blood Count 5.5 x10^3/uL (4.0-11.0) Red Blood Count 4.76 x10^6/uL (4.30-5.70) Hemoglobin 14.3 g/dL (13.0-17.5) Hematocrit 41.3 % (39.0-53.0) Mean Corpuscular Volume 87 fL (79-100) Mean Corpuscular Hemoglobin 30 pg (25-35) Mean Corpuscular Hemoglobin Concent 35 g/dL (31-37) Red Cell Distribution Width 13.3 % (11.5-14.5) Platelet Count 262 x10^3/uL (140-400) Neutrophils (%) (Auto) 66 % (31-73) Lymphocytes (%) (Auto) 22 % (24-48) L Monocytes (%) (Auto) 10 % (0-9) H Eosinophils (%) (Auto) 2 % (0-3) Basophils (%) (Auto) 1 % (0-3) Neutrophils # (Auto) 3.7 x10^3/uL (1.8-7.7) Lymphocytes # (Auto) 1.2 x10^3/uL (1.0-4.8) Monocytes # (Auto) 0.5 x10^3/uL (0.0-1.1) Eosinophils # (Auto) 0.1 x10^3/uL (0.0-0.7) Basophils # (Auto) 0.0 x10^3/uL (0.0-0.2) Prothrombin Time 11.8 SEC (11.7-14.0) Prothromb Time International Ratio 0.9 (0.8-1.1) Sodium Level 137 mmol/L (136-145) Potassium Level 4.3 mmol/L (3.5-5.1) Chloride Level 100 mmol/L (98-107) Carbon Dioxide Level 26 mmol/L (21-32) Anion Gap 11 (6-14) Blood Urea Nitrogen 12 mg/dL (8-26) Creatinine 0.9 mg/dL (0.7-1.3) Estimated GFR (Cockcroft-Gault) 107.2 BUN/Creatinine Ratio 13 (6-20) Glucose Level 124 mg/dL (70-99) H Lactic Acid Level 1.7 mmol/L (0.4-2.0) Calcium Level 9.0 mg/dL (8.5-10.1) Total Bilirubin 0.4 mg/dL (0.2-1.0) Aspartate Amino Transf (AST/SGOT) 28 U/L (15-37) Alkaline Phosphatase 62 U/L (46-116) Creatine Kinase 173 U/L (39-308) Total Protein 8.3 g/dL (6.4-8.2) H Albumin 3.9 g/dL (3.4-5.0) Albumin/Globulin Ratio 0.9 (1.0-1.7) L Cholesterol Level 172 mg/dL (0-200) LDL Cholesterol, Calculated 98 mg/dL (0-100) VLDL Cholesterol, Calculated 24 mg/dL (0-40) Non-HDL Cholesterol Calculated 122 mg/dL (0-129) Cholesterol/HDL Ratio 3.4 Thyroid Stimulating Hormone (TSH) 1.764 uIU/mL (0.358-3.74) Urine Collection Type Unknown Urine Color Yellow Urine Clarity Clear Urine pH 5.5 Urine Specific [place] 1.010 Urine Protein Negative mg/dL (NEG-TRACE) Urine Glucose (UA) Negative mg/dL (NEG) Urine Ketones (Stick) Negative mg/dL (NEG) Urine Blood Negative (NEG) Urine Nitrite Negative (NEG) Urine Bilirubin Negative (NEG) Urine Urobilinogen Dipstick 0.2 mg/dL (0.2 mg/dL) Urine Leukocyte Esterase Negative (NEG) Urine RBC 0 /HPF (0-2) Urine WBC 0 /HPF (0-4) Urine Squamous Epithelial Cells Few /LPF Urine Bacteria 0 /HPF (0-FEW) Urine Opiates Screen Pos (NEG) Urine Methadone Screen Neg (NEG) Urine Barbiturates Neg (NEG) Urine Phencyclidine Screen Neg (NEG) Urine Amphetamine/Methamphetamine Neg (NEG) Urine Benzodiazepines Screen Neg (NEG) Urine Cocaine Screen Neg (NEG) Urine Cannabinoids Screen Pos (NEG) Urine Ethyl Alcohol Neg (NEG) ASSESSMENT: 1. L toe crush injury 2. Malignant HTN - Etiology is likely mixed (toe pain/stress, intrinsic HTN and diet) PLAN: 1. I had a long discussion with him and his fiance about etiology of his HTN. We discussed need to change his diet (beer drinking etc) 2. We discussed side effects of coreg, amlodipine and lisinopril. No current allergies. Based on his bp this morning, he will likely need three drugs. We d iscussed importance of f/u with PCP. 3. Probably has aortic vascular disease based on his renal duplex study, consider outpt PAD evaluation. Supportive care. Thanks SE SABA MD Jun 13, 2019 08:24
[2019-06-13] MEDS ORDERED: MULTIVITAMIN with MINERAL TABLET. PO SCH (09:00)
[2019-06-13] MEDS ORDERED: FOLIC ACID 1 MG TABLET. PO SCH (09:00)
[2019-06-13] MEDS ORDERED: THIAMINE 100 MG TABLET. PO SCH (09:00)
[2019-06-13] MEDS ORDERED: LISINOPRIL 10 MG TABLET PO SCH (09:00)
[2019-06-13] MEDS: cefTRIAXone IV Push 1 GM VIAL. IVP SCH (09:40)
[2019-06-13] MEDS: hydrALAZINE 20 MG/ML VIAL. IVP PRN (10:06)
[2019-06-13 11:31] LABS: VANC TR 13.2 mcg/mL (10.0-20.0)
[2019-06-13 11:32] VITALS: BP 172/92
[2019-06-13] MEDS ORDERED: LISI10TA2 PO (11:48)
[2019-06-13] MEDS ORDERED: AMLO10TA8 PO (11:48)
[2019-06-13] MEDS ORDERED: CARV12.511 PO (11:48)
[2019-06-13] MEDS: VANCOMYCIN PER PHARMACY MC PRN (11:49)
--- NOTE | 2019-06-13 11:50 | NUR ---
Pharmacy Vancomycin Dosing Note S:Consulted to monitor and dose vancomycin started 06/12/19. O:STONE MIN is a 54 year old M with Cellulitis . Height: 6 feet, 0 inches Weight: 86.331518 kg [place] Body Weight: 77.60 Adjusted Body Weight: 80.96 Dosing Weight: Actual Other Antibiotics: ROCEPHIN LABS: Last BUN: 12 Last Creatinine: 0.9 Creatinine Clearance: >100 mL/min Last WBC: 5.5 Last Procalcitonin: Tmax (past 24 hours): 98.6 Microbiology: I/O: 1870/2200 Drug Levels: Last Trough level: 13.2 on 06/13/19 at 1050 Last dose given 06/13/19 at 0250 Vancomycin Dosing: Loading Dose: 2000 mg x1 Dosing Weight: Actual Target Trough: 10-20 A: Based on: Therapeutic trough P: 1. Continue same Vancomycin 1250 mg IV q8h 2. Follow up Trough level on 06/13/19 at 1030 3. Pharmacy will continue to monitor, follow and adjust therapy as needed. NAVYA BROWNLEE RPH, 06/13/19 [id number]
[2019-06-13] MEDS ORDERED: AMOX1TAB61 PO (11:51)
--- NOTE | 2019-06-13 12:50 | PDOC3 ---
Discharge Summary Visit Information Date of Admission: Jun 12, 2019 Date of Discharge: Jun 13, 2019 Final Diagnosis OPEN Comminuted intra-articular fractures and degenerative changes of the left first distal phalanx base and proximal phalanx involving the interphalangeal joint, some DJD with superimposed trauma 2. First digit soft tissue swelling. 3. CRUSH injury to left foot. POA 4 DAYS OLD 4. HX ETOH AND THC use almost daily 5. hypertensive urgency, poorly control htn, Problems Medical Problems: (1) Cellulitis of great toe, left Status: Acute (2) Hypertensive emergency Status: Acute (3) Open fracture of left great toe Status: Acute Brief Hospital Course Allergies Allergies Coded Allergies Type Severity Reaction Last Updated Verified No Known Drug Allergies 11/22/17 No Vital Signs Vital Signs Date Time Temp Pulse Resp B/P (MAP) Pulse Ox O2 Delivery O2 Flow Rate FiO2 06/13/19 11:32 98.3 75 12 172/92 (118) 99 Room Air 98.3 Lab Results Laboratory Tests Test 06/12/19 09:24 06/12/19 11:15 06/13/19 10:50 White Blood Count 5.5 x10^3/uL (4.0-11.0) Red Blood Count 4.76 x10^6/uL (4.30-5.70) Hemoglobin 14.3 g/dL (13.0-17.5) Hematocrit 41.3 % (39.0-53.0) Mean Corpuscular Volume 87 fL (79-100) Mean Corpuscular Hemoglobin 30 pg (25-35) Mean Corpuscular Hemoglobin Concent 35 g/dL (31-37) Red Cell Distribution Width 13.3 % (11.5-14.5) Platelet Count 262 x10^3/uL (140-400) Neutrophils (%) (Auto) 66 % (31-73) Lymphocytes (%) (Auto) 22 % (24-48) Monocytes (%) (Auto) 10 % (0-9) Eosinophils (%) (Auto) 2 % (0-3) Basophils (%) (Auto) 1 % (0-3) Neutrophils # (Auto) 3.7 x10^3/uL (1.8-7.7) Lymphocytes # (Auto) 1.2 x10^3/uL (1.0-4.8) Monocytes # (Auto) 0.5 x10^3/uL (0.0-1.1) Eosinophils # (Auto) 0.1 x10^3/uL (0.0-0.7) Basophils # (Auto) 0.0 x10^3/uL (0.0-0.2) Prothrombin Time 11.8 SEC (11.7-14.0) Prothromb Time International Ratio 0.9 (0.8-1.1) Sodium Level 137 mmol/L (136-145) Potassium Level 4.3 mmol/L (3.5-5.1) Chloride Level 100 mmol/L (98-107) Carbon Dioxide Level 26 mmol/L (21-32) Anion Gap 11 (6-14) Blood Urea Nitrogen 12 mg/dL (8-26) Creatinine 0.9 mg/dL (0.7-1.3) Estimated GFR (Cockcroft-Gault) 107.2 BUN/Creatinine Ratio 13 (6-20) Glucose Level 124 mg/dL (70-99) Lactic Acid Level 1.7 mmol/L (0.4-2.0) Calcium Level 9.0 mg/dL (8.5-10.1) Total Bilirubin 0.4 mg/dL (0.2-1.0) Aspartate Amino Transf (AST/SGOT) 28 U/L (15-37) Alanine Aminotransferase (ALT/SGPT) 30 U/L (16-63) Alkaline Phosphatase 62 U/L (46-116) Creatine Kinase 173 U/L (39-308) HF-Mjw-[id number]-Type Natriuretic Peptide 31 pg/mL (0-124) Total Protein 8.3 g/dL (6.4-8.2) Albumin 3.9 g/dL (3.4-5.0) Albumin/Globulin Ratio 0.9 (1.0-1.7) Triglycerides Level 121 mg/dL (0-150) Cholesterol Level 172 mg/dL (0-200) LDL Cholesterol, Calculated 98 mg/dL (0-100) VLDL Cholesterol, Calculated 24 mg/dL (0-40) Non-HDL Cholesterol Calculated 122 mg/dL (0-129) HDL Cholesterol 50 mg/dL (40-60) Cholesterol/HDL Ratio 3.4 Thyroid Stimulating Hormone (TSH) 1.764 uIU/mL (0.358-3.74) Urine Collection Type Unknown Urine Color Yellow Urine Clarity Clear Urine pH 5.5 Urine Specific [place] 1.010 Urine Protein Negative mg/dL (NEG-TRACE) Urine Glucose (UA) Negative mg/dL (NEG) Urine Ketones (Stick) Negative mg/dL (NEG) Urine Blood Negative (NEG) Urine Nitrite Negative (NEG) Urine Bilirubin Negative (NEG) Urine Urobilinogen Dipstick 0.2 mg/dL (0.2 mg/dL) Urine Leukocyte Esterase Negative (NEG) Urine RBC 0 /HPF (0-2) Urine WBC 0 /HPF (0-4) Urine Squamous Epithelial Cells Few /LPF Urine Bacteria 0 /HPF (0-FEW) Urine Opiates Screen Pos (NEG) Urine Methadone Screen Neg (NEG) Urine Barbiturates Neg (NEG) Urine Phencyclidine Screen Neg (NEG) Urine Amphetamine/Methamphetamine Neg (NEG) Urine Benzodiazepines Screen Neg (NEG) Urine Cocaine Screen Neg (NEG) Urine Cannabinoids Screen Pos (NEG) Urine Ethyl Alcohol Neg (NEG) Vancomycin Level Trough 13.2 mcg/mL (10.0-20.0) Vancomycin Last Dose Date 06/13/19 Vancomycin Last Dose Time 0300 Laboratory Tests Test 06/13/19 10:50 Vancomycin Level Trough 13.2 mcg/mL (10.0-20.0) Vancomycin Last Dose Date 06/13/19 Vancomycin Last Dose Time 0300 Brief Hospital Course Mr. Roberts is a 54 old male, admit after toe crush injury, intra-art toe fractures, with some open and degen changes. 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 a more sedentary job at [employer] recently abx given IV, will change to PO he felt well MD home mult new BP meds Discharge Information Condition at Discharge: Improved Follow Up: Weeks Disposition/Orders: D/C to Home Scheduled Amlodipine Besylate (Amlodipine Besylate) 10 Mg Tablet, 10 MG PO DAILY08 for hypertension, #30 Ref 1 Prescribed by: RENETTA CALDERON on 06/13/19 1148 Amoxicillin/Potassium Clav (Augmentin 875-125 Tablet) 1 Each Tablet, 1 TAB PO BID for toe infection for 7 Days, #14 Ref 0 Prescribed by: RENETTA CALDERON on 06/13/19 1151 Carvedilol (Carvedilol ) 12.5 Mg Tablet, 12.5 MG PO BIDWMEALS for blood pressure, #60 Ref 1 Prescribed by: RENETTA CALDERON on 06/13/19 1148 Lisinopril (Lisinopril) 10 Mg Tablet, 10 MG PO DAILY for hypertension, #30 Ref 1 Prescribed by: RENETTA CALDERON on 06/13/19 1148 Scheduled PRN Tramadol Hcl (Tramadol Hcl) 50 Mg Tablet, 50 MG PO Q6HRS PRN for PAIN, #30 Prescribed by: Lina Beverly APRN on 11/22/171043 Last Action: HELD on 06/12/191047 by STONE CASTELLANOS MD Discontinued Medications Amlodipine Besylate (Amlodipine Besylate) 5 Mg Tablet, 5 MG PO DAILY, #20 Prescribed by: Lina Beverly APRN on 11/22/171043 Last Action: HELD on 06/12/191047 by STONE CASTELLANOS MD Methylprednisolone (Medrol) 4 Mg Tab.ds.pk, 1 PKG PO UD, #1 Prescribed by: Lina Beverly APRN on 11/22/171043 Last Action: HELD on 06/12/191047 by STONE CASTELLANOS MD Patient Instructions Patient Instructions > 30 min i asked him to cut down on EtOH some boot for foot, RENETTA CALDERON MD Jun 13, 2019 12:49
--- NOTE | 2019-06-13 15:22 | NUR ---
Discharge Note: STONE MIN Discharge instructions and discharge home medications reviewed with Patient and a copy given. All questions have been answered and understanding verbalized.
[2019-06-14 00:07] LABS: HEMOGLOBIN A1C 5.6 % (4.8-5.6)
== END 2019-06-13 14:30 | disposition home or self-care (01) | DRG 563 ==
LOC: ER 08:44 → 2 NORTH 09:55
PROVIDERS: ADMIT Family Medicine; ATTEND Family Medicine
DX: S92.422B Displaced fracture of distal phalanx of left great toe, initial encounter for open fracture (principal); I16.1 Hypertensive emergency; F17.210 Nicotine dependence, cigarettes, uncomplicated; I10 Essential (primary) hypertension; L03.032 Cellulitis of left toe; S97.82XA Crushing injury of left foot, initial encounter; F12.90 Cannabis use, unspecified, uncomplicated; S97.112A Crushing injury of left great toe, initial encounter; W20.8XXA Other cause of strike by thrown, projected or falling object, initial encounter; Z83.3 Family history of diabetes mellitus; Z82.49 Family history of ischemic heart disease and other diseases of the circulatory system; Y93.89 Activity, other specified; Y92.89 Other specified places as the place of occurrence of the external cause; Y99.8 Other external cause status
CPT/HCPCS: 36415; 71045; 73630; 76770; 80053; 80061; 80202; 80307; 81001; 82550; 83036; 83605; 83880; 84443; 85025; 85610; 87040; 90471; 90715; 93005; 93306; 94640; 94760; 96365; 96375; J0360; J0696; J2270; J2405; J3370; J7030; J7040; J7050; 99285-25; G0378